=== PATIENT | female | born 2000 | race Caucasian/White ===

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

== ENCOUNTER 2018-09-04 14:21 | Emergency (ER) | payer OTHER ==
--- OUTSIDE RECORDS SUMMARY | 2018-09-04 14:31 | XMS REPORT | Continuity of Care Document ---
:2000 External Reference #:[id number] Author Name Coral Herrera NP Address [address] [place] [id number] Care Team Providers Name Role Phone No Primary Care Physician Unavailable Payers Type Date Identification Numbers Payment Provider Subscriber Effective: 2018 Policy Number: [id number] [facility] THIEN Woodson PayID: [id number] [address] [place] [address] Policy Number: [id number] Medicaid -Melinda Stefania Woodson PayID: [id number] [address] [place] [address] Effective: 2017 Policy Number: [id number] Medicaid Pe (JC) Stefania Woodson Expires: 2017 PayID: [id number] [address] [facility] [place] [address] Advance Directives Description No Information Available Problems Description No Active Problems Family History Date Family Member(s) Problem(s) Comments General Ovarian Cancer great mat. GM Father Alive Father No Current Problems Mother Alive Mother No Current Problems Social History Type Date Description Comments Sex Female Education Highest level completed, 12th grade Marital Status Legal Status: Never Tobacco Use Reviewed: 07/18/18 Never Smoked Cigars Tobacco Use Reviewed: 07/18/18 Never Smoked A Pipe Smoking Status Reviewed: 07/18/18 Never Smoked A Pipe Tobacco Use Reviewed: 07/18/18 Never Used Smokeless Tobacco ETOH Use Has consumed alcohol in the past Recreational Drug Use Denies Drug Use Tobacco Use Start: Unknown Patient is a former End: Unknown smoker Recreational Drug Use Teaching provided regarding Naloxone/Narcan Training Available At [facility] Tattoo/Piercing Tattoo sterile equipment used Tattoo/Piercing Tattoos professionally done Condom Use Frequently UNKNOWN 07/18/2018 Never E-Cigarette User Allergies, Adverse Reactions, Alerts Date Description Reaction Status Severity Comments 10/11/2017 Latex Active Medications Medication Date Status Form Strength Qnty SIG Indications Ordering Provider Macrobid 08/16/ Active Capsules 100mg 14caps one capsule by N39.0 Coral Dinero 2018 mouth twice a Kelchner, day x 7 days SPRAYER INSECTICIDE Kyleena 06/04/ Active IUD 19.5mg one device Z30.430 In an 2018 intrauterine MD Alexander Naproxen 06/04/ Active Tablets 550mg 60tabs one tablet Z30.430 In [facility] Sodium 2018 twice a day MD Alexander twice a day as needed Ortho-Cyclen 03/15/ Hx Tablets 0.25-35mg- 84tabs 1 by mouth Coral Dinero () 2018 - mcg every day Sharon, SPRAYER INSECTICIDE 2017 Ortho-Cyclen 12/18/ Hx Tablets 0.25-35mg- 84tabs 1 by mouth In [facility] () 2018 - mcg every day MD Alexander 2017 Macrobid 12/15/ Hx Capsules 100mg 14caps one capsule by N39.0 Coral Dinero 2017 - mouth twice a Pablochner, 03/15/ day x 7 days SPRAYER INSECTICIDE 2017 Ortho-Cyclen 10/11/ Hx Tablets 0.25-35mg- 84tabs 1 by mouth Z30.011 Coral Dinero () 2016 - mcg every day Pablochner, 03/15/ SPRAYER INSECTICIDE 2017 Ortho-Cyclen /00/ Hx Unknown (28) 0000 - 2017 Pro 00/00/ Hx Unknown Nutrients 0000 - Probiotic 2017 Ibuprofen 00/ Hx Unknown 0000 - 2017 Medications Administered in Office Medication Date Status Form Strength Qnty SIG Indications Ordering Provider Contraceptive 10/11/ Administered Injection Coral Dinero Pills 2016 Babak Herrera NP Immunizations Description No Information Available Vital Signs Date Vital Result Comment 08/16/2018 12:34pm BP Systolic 118 mmHg BP Diastolic 80 mmHg Height 64 inches 5'4" Weight 104.00 lb BMI (Body Mass Index) 17.8 kg/m2 07/18/2018 8:20am BP Systolic 93 mmHg BP Diastolic 57 mmHg Height 64 inches 5'4" Weight 105.00 lb BMI (Body Mass Index) 18.0 kg/m2 06/04/2018 10:51am BP Systolic 127 mmHg 1st BP post IUD insertion BP Diastolic 93 mmHg 1st BP post IUD insertion BP Systolic Recheck 124 mmHg 2nd BP post IUD insertion BP Diastolic Recheck 84 mmHg 2nd BP post IUD insertion 06/04/2018 8:41am BP Systolic 103 mmHg BP Diastolic 77 mmHg Height 64 inches 5'4" Weight 110.00 lb BMI (Body Mass Index) 18.9 kg/m2 03/15/2018 10:12am BP Systolic 110 mmHg BP Diastolic 70 mmHg Height 64 inches 5'4" Weight 107.00 lb BMI (Body Mass Index) 18.4 kg/m2 12/15/2017 2:29pm BP Systolic 108 mmHg BP Diastolic 67 mmHg Height 64 inches 5'4" Weight 106.00 lb BMI (Body Mass Index) 18.2 kg/m2 10/11/2017 1:27pm BP Systolic 132 mmHg electronic BP Diastolic 73 mmHg electronic BP Systolic Recheck 96 mmHg manual BP Diastolic Recheck 72 mmHg manual Height 64 inches 5'4" Weight 108.00 lb BMI (Body Mass Index) 18.5 kg/m2 Results Test Date Facility Test Result H/L Range Note Urinalysis DIP 08/16/2018 [facility] Urine Leukocyte tr Only.... Esterase QN Urine Nitrite QN N Urine Blood + Urine PH 5.0 Urine Protein Random N Urine Ketone Random N Urine Glucose QN Random N Chlamydia/N 06/04/[address] [facility] [address],Rna,Tma,Urogenital NOT DETECTED Not Detected 1 Gonorroeae Rna Tma Urogenit GC Rna,Tma,Urogen NOT DETECTED Not Detected 2 Laboratory test 03/15/2018 [facility] C.Trachomatis NOT DETECTED Not Detected 3 finding Rna,Tma W/RFX N.Gonorrhoeae Rna,Tma Culture,Urine,Voi 12/15/2017 [facility] URINE-URINE ded Preliminary Report SEE NOTE 4 Organism #1 SEE NOTE 5 Vitek GN24 Susceptibility 12/15/2017 [facility] Amoxicillin/Clavulanic Acid S (< =2) Org 1 Ampicillin S (<=2) Ampicillin/Sulbact S (<=2) Cefepime S (<=1) Ceftazidime S (<=1) Ceftriaxone S (<=1) Ciprofloxacin S (<=0.25) Ertapenem S (<=0.5) Gentamicin S (<=1) Imipenem S (<=0.25) Levofloxacin S (<=0.12) Nitrofurantoin S (<=16) Piperacillin/Tazobactam S (<=4) Tobramycin S (<=1) Trimethoprim/Sulfa S (<=20) 6 Chlam 12/15/2017 [facility] C.Trachomatis NOT DETECTED Not Detected 7 Trach/Neisseria Rna,Tma Gonorroeae Rna Tma N.Gonorrhoeae Rna,Tma NOT DETECTED Not Detected 8 Laboratory test finding 12/15/2017 [facility] Test Urine..... neg Urinalysis DIP Only.... 12/15/2017 [facility] Urine Leukocyte Esterase QN N Urine Nitrite QN + Urine Blood + Urine PH 5.0 Urine Protein Random N Urine Ketone Random N Urine Glucose QN Random N Laboratory test 10/11/2017 [facility] Chlamydia NOT DETECTED Not Detected 9 finding Trachomatis Rna,Tma 1 This test was performed using the APTIMA COMBO2(R) Assay (GEN-PROBE(R). The analytical performance characteristics of this assay, when used to test SurePath(R) specimens have been determined by [facility]. 2 This test was performed using the APTIMA COMBO2(R) Assay (GEN-PROBE(R). The analytical performance characteristics of this assay, when used to test SurePath(R) specimens have been determined by [facility]. 3 This test was performed using the APTIMA COMBO2(R) Assay (GEN-PROBE(R). The analytical performance characteristics of this assay, when used to test SurePath(R) specimens have been determined by [facility]. 4 PRESUMPTIVE ESCHERICHIA COLI 10,000 - 50,000 CFU/ML 5 ESCHERICHIA COLI 10,000 - 50,000 CFU/ML 6 ( )=MINIMUM INHIBITORY CONCENTRATION IN MCG/ML 7 This test was performed using the APTIMA COMBO2(R) Assay (GEN-PROBE(R). The analytical performance characteristics of this assay, when used to test SurePath(R) specimens have been determined by [facility]. 8 This test was performed using the APTIMA COMBO2(R) Assay (GEN-PROBE(R). The analytical performance characteristics of this assay, when used to test SurePath(R) specimens have been determined by [facility]. 9 This test was performed using the APTIMA COMBO2(R) Assay (GEN-PROBE(R). The analytical performance characteristics of this assay, when used to test SurePath(R) specimens have been determined by [facility]. Procedures Date Code Description Status 06/04/2018 39038 Insert Intrauterine Device Completed Encounters Description No Information Available Plan of Treatment 08/16/2018 - Coral Bar Sharon, NPR21 Rash and other nonspecific skin eruptionComments:Likely a folliculitis secondary to a sensitivity to the new oil she applied to her back. Advised to use an antibacterial soap on back. Keep back clean and dry. May apply thin layer of hydrocortisone cream if itching is present. If no improvement or if sx worsen in any way, patient was advised to f/ u with PCP or urgent care if after hours.Z30.431 Encounter for routine checking of intrauterine contraceptiveComments:Patient is happy with her IUD. Reports improvement in the bleeding.N39.0 Urinary tract infection, site not specifiedNew Medication:Macrobid 100 mg - one capsule by mouth twice a day x 7 daysNew Labs:Culture,Urine,Voided, Ordered: 08/16/18Comments:+ leuks in urine - send for urine cx. Rx for Macrobid- reviewed use of, side effects and precautionsof abx use with patient who states understanding. Increase po pefnlcI99.3 Encntr screen for infections w sexl mode of transmissNew Labs: Chlamydia/N Gonorroeae Rna Tma Urogenit, Ordered: 08/16/18Comments:Reviewed STD risks and prevention with patient. Patient states understanding. Condoms given to patient.Follow up:prn no improvement
[2018-09-04 14:40] VITALS: BP 128/69
--- NOTE | 2018-09-04 15:22 | ED ---
GI/ HPI - HPI Summary HPI Summary: 17 yr old female with the complaint of left flank pain. Onset of pain over the past couple of days, both right and left sides at times. She has associated dysuria frequency of urination. She feels she has another urine infection. She has an IUD. - History of Current Complaint Chief Complaint: UCLowerExtremity Time Seen by Provider: 09/04/18 14:48 Stated Complaint: BACK PAIN Hx Last Menstrual Period: IUD MAY 2018; spotting until JUN 2018 Pain Intensity: 5 - Allergy/Home Medications Allergies/Adverse Reactions: Allergies Allergy/AdvReac Type Severity Reaction Status Date / Time No Known Allergies Allergy Verified 10/27/17 14:26 Home Medications: Home Medications Iud 1 implant ONCE 09/04/18 [History Confirmed 09/04/18] PMH/Surg Hx/FS Hx/Imm Hx Endocrine/Hematology History: Denies: Hx Anticoagulant Therapy, Hx Blood Disorders Respiratory History: Denies: Hx Asthma Musculoskeletal History: Reports: Hx Scoliosis Sensory History: Reports: Hx Contacts or Glasses Opthamlomology History: Reports: Hx Contacts or Glasses Infectious Disease History: No Infectious Disease History: Denies: Traveled Outside the [place] in Last 30 Days - Family History Known Family History: Positive: None - Social History Alcohol Use: None Hx Substance Use: No Substance Use Type: Reports: None Hx Tobacco Use: No Smoking Status (MU): Never Smoked Tobacco Review of Systems Positive: Fever, Chills Positive: dysuria, frequency, flank pain All Other Systems Reviewed And Are Negative: Yes Physical Exam Triage Information Reviewed: Yes Vital Signs On Initial Exam: Initial Vitals Temp Pulse Resp BP Pulse Ox 98.9 F 101 16 128/69 98 09/04/18 14:32 09/04/18 14:32 09/04/18 14:32 09/04/18 14:32 09/04/18 14:32 Vital Signs Reviewed: Yes Appearance: Positive: Well-Appearing, No Pain Distress Skin: Positive: Warm, Skin Color Reflects Adequate Perfusion Head/Face: Positive: Normal Head/Face Inspection Eyes: Positive: EOMI ENT: Positive: Normal ENT inspection Neck: Positive: Nontender Respiratory/Lung Sounds: Positive: Clear to Auscultation, Breath Sounds Present Cardiovascular: Positive: RRR. Negative: Murmur Abdomen Description: Positive: CVA Tenderness (L) Musculoskeletal: Positive: Strength/ROM Intact Neurological: Positive: Sensory/Motor Intact, Alert, Oriented to Person Place, Time, CN Intact II-III Psychiatric: Positive: Normal - Lashanda Coma Scale Best Eye Response: 4 - Spontaneous Best Motor Response: 6 - Obeys Commands Best Verbal Response: 5 - Oriented Coma Scale Total: 15 Diagnostics - Vital Signs Vital Signs Temp Pulse Resp BP Pulse Ox 09/04/18 14:32 98.9 F 101 16 128/69 98 - Laboratory Lab Results: Lab Results 09/04/18 09/04/18 Range/Units 14:52 14:53 POC Urine Color Yellow POC Urine Clarity Cloudy POC Urine pH 6.5 (5-9) POC Ur Specif [place] 1.020 (1.010-1.030) POC Urine Protein 2+ A (Negative) POC Ur Glucose (UA) Negative (Negative) POC Urine Ketones Negative (Negative) POC Urine Blood 2+ A (Negative) POC Urine Nitrite Negative (Negative) POC Urine Bilirubin Negative (Negative) POC Urine Urobilinogen 0.2 (Negative) POC U Leukocyte Esteras 2+ A (Negative) POC Ur Test Negative (Negative) Lab Statement: Any lab studies that have been ordered have been reviewed, and results considered in the medical decision making process. GIGU Course/Dx - Course Course Of Treatment: 17 yr old with pyelonephritis. Rx with cipro - Diagnoses Provider Diagnoses: Kidney infection Discharge - Sign-Out/Discharge Documenting (check all that apply): Patient Departure All imaging exams completed and their final reports reviewed: No Studies - Discharge Plan Condition: Good Disposition: HOME Prescriptions: Ciprofloxacin TAB* [Cipro 500 MG TAB*] 500 mg PO BID #20 tab Patient Education Materials: Kidney Infection (ED) Referrals: No Primary Care Phys,NOPCP [Primary Care Provider] - [facility] [place] [facility] REFERRAL [Outside] - 2 Days - Billing Disposition and Condition Condition: GOOD Disposition: Home
== END 2018-09-04 15:25 | disposition home or self-care (01) ==
LOC: UCCORT 14:21
DX: N15.9 Renal tubulo-interstitial disease, unspecified (principal)
CPT/HCPCS: 81003; 84702; 87086; 87088; 99212; G0463

== ENCOUNTER 2018-10-27 12:37 | Emergency (ER) | payer BC, OTHER ==
[2018-10-27 13:07] VITALS: BP 105/71
--- NOTE | 2018-10-27 13:47 | UC ---
Throat Pain/Nasal Yehuda HPI - HPI Summary HPI Summary: 18 year old female presents with 3 day history of sore throat. Associated with about 1 week of nasal congestion and clear nasal drainage. Denies fever, chills , ear pain, sinus pain/pressure, dysphagia, chest pain, shortness of breath, cough, abdominal pain, nausea, or vomiting. - History of Current Complaint Chief Complaint: UCRespiratory Stated Complaint: THROAT COMPLAINT Time Seen by Provider: 10/27/18 13:26 Hx Obtained From: Patient Hx Last Menstrual Period: spotting for 2-3 days ?: No - Negative home test 2 days ago Onset/Duration: Gradual Onset Severity: Moderate Pain Intensity: 4 Cough: None Associated Signs & Symptoms: Positive: Nasal Discharge. Negative: Dysphagia, Drooling, Wheezing, Hoarseness, Sinus Discomfort, Fever, Vomiting, Rash - Allergies/Home Medications Allergies/Adverse Reactions: Allergies Allergy/AdvReac Type Severity Reaction Status Date / Time latex Allergy Itching Verified 10/27/18 12:58 PMH/Surg Hx/FS Hx/Imm Hx Previously Healthy: Yes - Denies significant PMH - Surgical History Surgical History: Yes - Family History Known Family History: Positive: Non-Contributory - Social History Occupation: Employed Full-time Lives: With Family Alcohol Use: None Substance Use Type: None Smoking Status (MU): Former Smoker - Immunization History Most Recent Tetanus Shot: UTD Review of Systems All Other Systems Reviewed And Are Negative: Yes Constitutional: Negative: Fever, Chills Skin: Negative: Rash Eyes: Negative: Drainage, Eye Redness ENT: Positive: Sore Throat, Nasal Discharge. Negative: Ear Ache, Sinus Pain/ Tenderness Respiratory: Negative: Shortness Of Breath, Cough Cardiovascular: Negative: Palpitations, Chest Pain Gastrointestinal: Negative: Abdominal Pain, Vomiting, Nausea Is Patient Immunocompromised?: No Physical Exam - Summary Physical Exam Summary: GENERAL APPEARANCE: Well developed, well nourished, alert and cooperative, and appears to be in no acute distress. EYES: Conjunctiva clear. No discharge. EARS: External auditory canals and tympanic membranes clear, hearing grossly intact. NOSE: Mild nasal congestion. No nasal discharge. THROAT: Oral cavity normal. Teeth and gingiva in good general condition. Pharyngeal erythema. Tonsils 1+ with exudate. NECK: Neck supple, non-tender without lymphadenopathy. CARDIAC: Normal S1 and S2. No S3, S4 or murmurs. Rhythm is regular. There is no peripheral edema, cyanosis or pallor. Extremities are warm and well perfused. Capillary refill is less than 2 seconds. Peripheral pulses intact. LUNGS: Clear to auscultation and percussion without rales, rhonchi, wheezing or diminished breath sounds. ABDOMEN: Positive bowel sounds. Soft, nondistended, nontender. No guarding or rebound. No masses or hepatosplenomegally. MUSKULOSKELETAL: ROM intact to all extremities. No joint erythema or tenderness. Normal muscular development. Normal gait. SKIN: Skin normal color, texture and turgor with no lesions or eruptions. Triage Information Reviewed: Yes Vital Signs: Initial Vital Signs Temp 98.3 F 10/27/18 12:59 Pulse 104 10/27/18 12:59 Resp 16 10/27/18 12:59 BP 105/71 10/27/18 12:59 Pulse Ox 100 10/27/18 12:59 Vital Signs Reviewed: Yes Diagnostics - Laboratory Diagnostic Studies Completed/Ordered: Rapid strep negative Throat Pain/Nasal Course/Dx - Course Course Of Treatment: 18 year old female presents with 3 day history of sore throat. Associated with about 1 week of nasal congestion and clear nasal drainage. Denies fever, chills, ear pain, sinus pain/pressure, dysphagia, chest pain, shortness of breath, cough, abdominal pain, nausea, or vomiting. Afebrile. VSS. Exam revealed pharyngeal erythema, 1+ tonsils with exudate, and no lymphadenopathy. Rapid strep negative. Suspect viral pharyngitis. Recommend symptomatic treatment. She is to follow up with PCP in 7 days if symptoms persist. Warning symptoms reviewed. Verbalizes understanding and agrees with POC. - Differential Dx/Diagnosis Differential Diagnosis/HQI/PQRI: Mononucleosis, Pharyngitis, Tonsillitis, URI Provider Diagnosis: Viral upper respiratory infection Discharge - Sign-Out/Discharge Documenting (check all that apply): Patient Departure All imaging exams completed and their final reports reviewed: No Studies - Discharge Plan Condition: Stable Disposition: HOME Patient Education Materials: Pharyngitis (ED) Forms: *Work Release Referrals: No Primary Care Phys,NOPCP [Primary Care Provider] - Additional Instructions: Your rapid strep test in the clinic today was negative. Your symptoms are likely from a viral infection. Viral infections do not respond to antibiotics and are limited to the treatment of symptoms. Viral infections typically run their course in 7-10 days. Drink plenty of fluids to avoid dehydration especially if you are running any fever. Use salt water gargles several times a day. Take over the counter acetaminophen (Tylenol) or ibuprofen (Advil, Motrin) according to directions as needed for pain or fever. You may also use Chloraseptic spray or Cepacol lonzenges according to directions which contain a numbing medication and can provide some temporary relief from your sore throat. Try using on over the counter decongestant such as Sudafed according to directions to help with the nasal congestion. Follow up here or with your primary care provider in 7 days if symptoms persists. Seek immediate medical attention in the emergency room if you have fever greater than 100.5 F despite taking acetaminophen or ibuprofen, are unable to swallow or develop drooling, are unable to open your mouth fully, are unable to eat or drink, have pain that is not relieved with over the counter pain medication, have any difficulty breathing, or any worsening of symptoms. - Billing Disposition and Condition Condition: STABLE Disposition: Home
== END 2018-10-27 14:07 | disposition home or self-care (01) ==
LOC: UCCORT 12:37
DX: J06.9 Acute upper respiratory infection, unspecified (principal); J02.9 Acute pharyngitis, unspecified; Z87.891 Personal history of nicotine dependence
CPT/HCPCS: 87651; 99211; G0463

== ENCOUNTER 2022-09-30 18:51 | Inpatient (IN) ==
[2022-09-30] MEDS ORDERED: Promethazine INJ(RESTRICTED) 25 MG/ML 1 ml VIAL IV PRN (19:45)
[2022-09-30] MEDS ORDERED: Lactated Ringers 1000 ml BAG 1,000 ML IV ONE ×2 (19:45→22:05)
[2022-09-30] MEDS ORDERED: Buffered Lidocaine 1% SYRIN 1 ml INTRADERM ONE (19:45)
[2022-09-30] MEDS ORDERED: Nalbuphine 10 MG/ML 1 ML VIAL IV PRN (19:45)
[2022-09-30] MEDS ORDERED: Lactated Ringers 1000 ml BAG 1,000 ML IV SCH ×3 (20:00→23:00)
[2022-09-30 21:07] LABS: Hematocrit 34 % (35-47); Mean Corpuscular HGB Conc 32 g/dL (31-36); Mean Corpuscular Hemoglobin 29 pg (27-31); Mean Corpuscular Volume 89 fL (80-97); Mean Platelet Volume 10.4 fL (7.4-10.4); Platelet Count 253 10^3/uL (150-450); Red Blood Count 3.81 10^6 /uL (3.70-4.87); Red Cell Distribution Width 14 % (10-15); White Blood Count 21.6 10^3/uL (3.5-10.8)
[2022-09-30 21:08] LABS: ABS Lymphocytes 1.4 10^3/ul (1.0-4.8); ABS Monocytes 1.6 10^3/ul (0-0.8); ABS Neutrophils 18.5 10^3/ul (1.5-7.7); Eosinophil % 0.1 %; Lymphocyte % 6.5 %
[2022-09-30 21:30] LABS: Urine Benzodiazepine Screen None Detected (None Detect); Urine Cannabinoids Screen None Detected (None Detect); Urine Opiates Screen None Detected (None Detect)
[2022-09-30] MEDS ORDERED: OBEPIDURAL (200 ML) 200 ML EPIDURAL ONE (22:00)
[2022-09-30] MEDS ORDERED: Lidocaine 1% w EPI 1:200,000 SDV 30 ML VIAL ONE (22:01)
[2022-09-30] MEDS ORDERED: Sodium Citrate/Citric Acid LIQ 15 ML UDC PO PRN (22:05)
[2022-09-30] MEDS ORDERED: Phenylephrine 40 mcg/mL 10mL (400mcg) SYRINGE IV PUSH PRN ×2 (22:05)
[2022-09-30] MEDS ORDERED: Lactated Ringers 1000 ml BAG 500 ML IV PRN (22:05)
[2022-09-30] MEDS ORDERED: OBEPIDURAL (200 ML) 200 ML EPIDURAL SCH (23:00)
[2022-10-01] MEDS ORDERED: Dibucaine 1% OINT 28.35 GM TUBE PR PRN (03:51)
[2022-10-01] MEDS ORDERED: Witch Hazel PAD JAR TOPICAL PRN (03:51)
[2022-10-01] MEDS ORDERED: Oxytocin 10 UNITS/ML 1 ML VIAL IM ONE (03:51)
[2022-10-01] MEDS ORDERED: Lactated Ringers 1000 ml BAG 1,000 ML IV SCH (04:00)
[2022-10-02 07:21] LABS: ABS Basophils 0.1 10^3/ul (0-0.2); ABS Eosinophils 0.3 10^3/ul (0-0.6); ABS Lymphocytes 3.3 10^3/ul (1.0-4.8); ABS Monocytes 1.2 10^3/ul (0-0.8); ABS Neutrophils 14.6 10^3/ul (1.5-7.7); Eosinophil % 1.3 %; Hematocrit 29 % (35-47); Hemoglobin 9.3 g/dL (12.0-16.0); Mean Corpuscular HGB Conc 33 g/dL (31-36); Mean Corpuscular Hemoglobin 29 pg (27-31); Mean Corpuscular Volume 90 fL (80-97); Mean Platelet Volume 9.1 fL (7.4-10.4); Platelet Count 228 10^3/uL (150-450); Red Blood Count 3.17 10^6 /uL (3.70-4.87); Red Cell Distribution Width 14 % (10-15); White Blood Count 19.5 10^3/uL (3.5-10.8)
[2022-10-03 08:41] VITALS: BP 105/70
== END 2022-10-03 12:11 | disposition home or self-care (01) | DRG 560 ==
LOC: MCHOBOUT 18:51 → MCHOB 19:33
PROVIDERS: ADMIT Midwife; ATTEND Midwife